=== PATIENT | male | born 1975 | race Caucasian/White ===

== ENCOUNTER → 2020-03-25 13:34 | Outpatient (REF) | payer OTHER, SELFPAY ==
--- NOTE | 2020-03-25 14:00 | CA_ITS ---
Transthoracic Echocardiogram Patient (Last, First, Middle): Thomas Georges, Gender: Male Date of : 1975 Age: 45 Procedure Date: 03/25/2020 Procedure Type: Transthoracic Echocardiogram Location: OP Height: 170.18 cm Weight: 104.33 kg BSA: 2.15 m2 Heart Rate: bpm BP: 130 / 70 mmHg Camera Systems Engineer: CUATE Referring MD: Winnie Osman DO Symptoms: I07.1 RHEUMATIC TRICUSPID INSUFFICIENCY Study Quality: Good ECG Rhythm: Sinus Conclusions: - The left ventricular systolic function is normal. The visually estimated ejection fraction is between 60-65%. - No obvious valvular pathology seen on this study. Findings Left Ventricle Normal left ventricular cavity size. There is normal left ventricular wall thickness. The left ventricular systolic function is normal. The visually estimated ejection fraction is between 60-65%. There is no evidence of regional wall motion abnormalities. Diastolic function is normal for age. Right Ventricle Normal right ventricular cavity size and systolic function. Atria Both atria are normal in size. Aortic Valve There is a normal trileaflet aortic valve. There is no aortic valve stenosis. There is no aortic valve regurgitation. Mitral Valve The mitral valve appears normal. There is trace mitral valve regurgitation. There is no mitral valve stenosis. Pulmonic Valve The pulmonic valve was not well visualized. Tricuspid Valve Normal tricuspid valve structure. There is mild tricuspid valve regurgitation. The pulmonary artery systolic pressure is normal. Great Vessels The aortic annulus, sinuses of valsalva, and asc aorta are normal in size. Venous The inferior vena cava is normal in size and collapses greater than 50% with inspiration. Pericardium/Pleural There is no evidence of pericardial effusion. Prior Study Comparison No significant change compared to prior study dated: 06/01/2016. Recommendations, Care & Conclusions No obvious valvular pathology seen on this study. Measurements 2D Linear Measurements IVSd: 0.96 0.6-0.9/0.6-1.0 cm LVIDd: 5.00 3.9-5.3/4.2-5.9 cm LVIDd Index: 2.33 2.4-3.2/2.2-3.1 cm/m2 LVIDs: 3.18 2.0-3.6 cm LVPWd: 0.95 0.7-1.1 cm Ao Root: 3.00 2.1-3.5 cm LA Diam: 3.50 2.7-3.8/3.0-4.0 cm LAIDs Index: 1.63 1.5-2.3 cm/m2 LV Mass: 213.88 67-162/88-224 g LV Mass Index: 99.48 43-95/49-115 g/m2 LVOT Diam: 2.00 3.0+(-)1.3 cm 2D Systolic Function EF 4C: 54.20 >55% EF 2C: 72.70 >55% EF BiP: 63.90 >55% Mitral Valve MV Pk E: 0.67 MV PK A: 0.51 MV Decel Time: 129.00 E/A: 1.30 E'Lateral: 13.00 E'Medial: 10.50 E/E' Med: 6.30 E/E' Lat: 5.10 PHT: 38.00 MVA PHT: 5.79 Decel Quay: 5.14 Aortic Valve AoV Pk Adair: 1.40 AoV Pk Grad: 8.00 LVOT LVOT Pk Adair: 1.17 LVOT Mn Adair: 0.77 LVOT VTI: 0.24 LVOT Pk Grad: 5.00 LVOT Mn Grad: 3.00 LVOT Diam: 2.00 LVOT Area: 3.14 Diastolic Function MV Pk E: 0.67 MV Pk A: 0.51 E/A: 1.30 E'Medial: 10.50 E/E' Med: 6.30 E' Laterial: 13.00 E/E' Lat: 5.10 Tricuspid Valve TR Pk Adair: 2.36 TR Pk Grad: 22.00 RA Press: 3.00 RVSP: 25.00 Great Vessels Aorta Ao Root-2D: 3.00 2.0-3.7 cm Ao Asc: 2.90 2.1-3.4 cm Updated in Other Vendor System with Status of Final Max You MD electronically signed on 03/28/2020 10:24:07 AM with status of Final
== END ==
LOC: HO.CARD 13:34
PROVIDERS: Visit Provider Family Medicine
DX: I07.1 Rheumatic tricuspid insufficiency (principal)
CPT/HCPCS: 93306

== ENCOUNTER 2020-12-08 07:36 | Outpatient (REF) | payer OTHER, SELFPAY ==
[2020-12-08 08:12] LABS: Hematocrit 40.8 % (42-52); Hemoglobin 13.6 g/dl (14.0-18.0); Mean Corpuscular HGB Conc 33.3 g/dl (31.0-36.0); Mean Corpuscular Volume 90.1 fL (80-98); Mean Platelet Volume 9.9 fL (9.4-12.4); Platelet Count 256 X10*3/uL (160-400); Red Blood Count 4.53 X10*6/uL (4.60-5.80); Red Cell Distribution Width 13.2 % (11.0-16.0); White Blood Count 9.1 X10*3/uL (4.8-10.8)
[2020-12-08 08:19] LABS: Estimated Average Glucose 114 mg/dL; Hemoglobin A1c % 5.6 %
[2020-12-08 08:33] LABS: Alanine Aminotransferase 20 U/L (0-40); Alkaline Phosphatase 72 U/L (39-117); Anion Gap 14 (12-20); Aspartate Amino Transferase 17 U/L (5-37); Bilirubin Direct 0.2 mg/dL (0.0-0.5); Bilirubin Total 0.5 mg/dL (0.0-1.0); Blood Urea Nitrogen 26 mg/dL (9-16); Calcium 9.1 mg/dL (8.4-10.2); Carbon Dioxide 26 mmol/L (22-29); Chloride 105 mmol/L (96-108); Cholesterol 154 mg/dL; Estimated Glomerular Filt Rate > 60; Glucose Random 98 mg/dL (60-115); HDL Cholesterol 44 mg/dL; LDL Cholesterol Calculated 98 mg/dl; Potassium 3.6 mmol/L (3.3-5.1); Sodium 141 mmol/L (135-145); Total Protein 7.2 g/dL (6.5-8.0); Triglycerides 63 mg/dL
[2020-12-08 08:53] LABS: HBS Num1 0.14 mIU/mL (0-7.99); HIV AB/AG Nonreactive (Nonreactive); HIV Num 1 0.07 S/CO (0.00-0.99); ~Hepatitis B Surface Antibody NONREACTIVE (Nonreactive)
[2020-12-08 08:59] LABS: Free T4 (Free Thyroxine) 1.07 ng/dL (0.71-1.85); Thyroid Stimulating Hormone 0.62 uIU/mL (0.32-4.0); Vitamin D 25-OH Total 49.4 ng/mL (>30)
[2020-12-08 09:12] LABS: ~HepC Num1 0.26 S/CO (0.00-0.79); ~Hepatitis C Antibody Nonreactive (Nonreactive)
[2020-12-08 09:20] LABS: Creatinine Urine 190.91 mg/dL; Microalbum/Creatinine Ratio Ur 31.4 ug/mg cr
[2020-12-08 09:26] LABS: HBsAGNum1 0.21 S/CO (0.00-0.99); Hepatitis B Surface Antigen Negative (Negative)
[2020-12-08 11:50] LABS: CT PCR NOT DETECTED (Not Detect.); NG PCR NOT DETECTED (Not Detect.)
[2020-12-09 04:47] LABS: Syphilis Screen Nonreactive (Nonreactive)
== END 2020-12-08 07:37 | disposition home or self-care (01) ==
LOC: HO.LAB 07:36
PROVIDERS: PCP Family Medicine; Visit Provider Family Medicine
DX: Z01.84 Encounter for antibody response examination (principal); Z11.59 Encounter for screening for other viral diseases; Z11.3 Encounter for screening for infections with a predominantly sexual mode of transmission; Z11.4 Encounter for screening for human immunodeficiency virus [HIV]; I10 Essential (primary) hypertension
CPT/HCPCS: 80048; 80061; 80076; 82043; 82306; 83036; 84439; 84443; 85027; 86706; 86780; 86803; 87340; 87389; 87491; 87591

== ENCOUNTER 2024-02-28 10:00 | Outpatient (REF) | payer OTHER, SELFPAY ==
[2024-02-28 11:16] LABS: Hematocrit 43.3 % (42.0-52.0); Hemoglobin 14.4 g/dl (14.0-18.0); Mean Corpuscular HGB Conc 33.3 g/dl (31.0-36.0); Mean Corpuscular Volume 90.2 fL (80.0-98.0); Mean Platelet Volume 10.3 fL (9.4-12.4); Platelet Count 255 X10*3/uL (160-400); Red Cell Distribution Width 12.8 % (11.0-16.0); White Blood Count 6.9 X10*3/uL (4.8-10.8)
[2024-02-28 11:29] LABS: Estimated Average Glucose 114 mg/dL; Hemoglobin A1C 138.2378 umol/L; Hemoglobin A1c % 5.6 % (<6.0); Total Hemoglobin (HGBA1C) 3651.0986 umol/L
[2024-02-28 12:23] LABS: Alanine Aminotransferase 29 U/L (0-40); Albumin Level 3.8 g/dL (3.5-5.0); Alkaline Phosphatase 56 U/L (39-117); Anion Gap 12 (12-20); Aspartate Amino Transferase 31 U/L (5-37); Bilirubin Direct 0.2 mg/dL (0.0-0.5); Bilirubin Total 0.9 mg/dL (0.0-1.0); Blood Urea Nitrogen 23 mg/dL (9-16); Calcium 8.9 mg/dL (8.4-10.2); Carbon Dioxide 26 mmol/L (22-29); Chloride 106 mmol/L (96-108); Cholesterol 147 mg/dL (<200); Estimated Glomerular Filt Rate > 60; Glucose Random 98 mg/dL (60-115); HDL Cholesterol 47 mg/dL (>40); LDL Cholesterol Calculated 90 mg/dL (<100); Potassium 3.8 mmol/L (3.3-5.1); Sodium 140 mmol/L (135-145); Total Protein 7.2 g/dL (6.5-8.0); Triglycerides 54 mg/dL (<150)
[2024-02-28 12:41] LABS: HBS Num1 635.89 mIU/mL (0-7.99); HBc Num1 0.24 S/CO (0.00-0.79); HBsAGNum1 0.48 S/CO (0.00-0.99); HIV AB/AG Nonreactive (Nonreactive); HIV Num 1 0.05 S/CO (0.00-0.99); Hepatitis B Core Antibody Nonreactive (Nonreactive); Hepatitis B Surface Antigen Negative (Negative); ~HepC Num1 0.33 S/CO (0.00-0.79); ~Hepatitis B Surface Antibody REACTIVE (Nonreactive); ~Hepatitis C Antibody Nonreactive (Nonreactive)
[2024-02-28 12:47] LABS: Hepatitis A Antibody IgG REACTIVE (Nonreactive)
[2024-02-28 12:52] LABS: Free T4 (Free Thyroxine) 1.05 ng/dL (0.71-1.85); Thyroid Stimulating Hormone 0.58 uIU/mL (0.32-4.0)
[2024-03-01 23:14] LABS: RPR Rapid Plasma Reagin NON-REACTIVE (NON-REACTIVE)
== END 2024-02-28 10:01 | disposition home or self-care (01) ==
LOC: HO.HHCL 10:00
PROVIDERS: Visit Provider Family Medicine
DX: Z12.11 Encounter for screening for malignant neoplasm of colon (principal); I10 Essential (primary) hypertension; Z13.1 Encounter for screening for diabetes mellitus
CPT/HCPCS: 36415; 80048; 80061; 80076; 82306; 83036; 84439; 84443; 85027; 86592; 86704; 86706; 86708; 86803; 87340; 87389

== ENCOUNTER → 2024-03-22 12:38 | Outpatient (REF) | payer OTHER, SELFPAY ==
--- NOTE | 2024-03-22 12:42 | CA_ITS ---
Transthoracic Echocardiogram Patient (Last, First, Middle): Thomas Georges, Gender: Male Date of : 1975 Age: 49 Procedure Date: 03/22/2024 Procedure Type: Transthoracic Echocardiogram Location: OP Height: 170.18 cm Weight: 111.13 kg BSA: 2.20 m2 Heart Rate: bpm BP: 130 / 82 mmHg Senior Foreman: Referring MD: Winnie Osman DO Symptoms: TRICUSPID VALVE INSUFFICIENCY 107.1 BIFASICULAR BLOCK, I45,2 Study Quality: Good ECG Rhythm: Sinus Conclusions: - Normal left ventricular size and systolic function. There is mildly increased left ventricular wall thickness. The visually estimated ejection fraction is between 65-70%. - Diastolic function is normal for age. - Mildly increased right ventricular cavity size. Findings Left Ventricle Normal left ventricular size and systolic function. There is mildly increased left ventricular wall thickness. The visually estimated ejection fraction is between 65-70%. There is no evidence of regional wall motion abnormalities. Diastolic function is normal for age. Right Ventricle Mildly increased right ventricular cavity size. There is normal right ventricular systolic function. Atria The left atrium is normal in size. Aortic Valve Normal aortic valve structure and function. There is no aortic valve stenosis. There is no aortic valve regurgitation. Mitral Valve Normal mitral valve structure and function. There is no mitral valve regurgitation. There is no mitral valve stenosis. Pulmonic Valve The pulmonic valve is likely normal. Tricuspid Valve Normal tricuspid valve structure. There is trace tricuspid valve regurgitation. Normal right atrial pressure. There is no evidence of pulmonary hypertension. Great Vessels All visible segments of the aorta are normal in size. The visualized portions of the pulmonary artery and branches are normal. Venous The inferior vena cava is normal in size and collapses greater than 50% with inspiration. Pericardium/Pleural There is no evidence of pericardial effusion. Prior Study Comparison Changes noted compared to prior study dated: 03/25/2024. RV mildly dilated. Measurements 2D Linear Measurements IVSd: 1.12 0.6-0.9/0.6-1.0 cm LVIDd: 4.78 3.9-5.3/4.2-5.9 cm LVIDd Index: 2.17 2.4-3.2/2.2-3.1 cm/m2 LVIDs: 3.14 2.0-3.6 cm LVPWd: 1.05 0.7-1.1 cm Ao Root: 2.90 2.1-3.5 cm LA Diam: 4.30 2.7-3.8/3.0-4.0 cm LAIDs Index: 1.95 1.5-2.3 cm/m2 LV Mass: 235.55 67-162/88-224 g LV Mass Index: 107.07 43-95/49-115 g/m2 LVOT Diam: 2.10 3.0+(-)1.3 cm Mitral Valve MV Pk E: 0.83 MV PK A: 0.58 MV Decel Time: 149.00 E/A: 1.40 E'Lateral: 14.30 E'Medial: 8.59 E/E' Med: 9.60 E/E' Lat: 5.80 PHT: 44.00 MVA PHT: 5.00 Decel Rice: 5.55 Aortic Valve AoV Pk Adair: 1.41 AoV Mn Adair: 0.93 AoV VTI: 0.32 AoV Pk Grad: 8.00 Aov Mn Grad: 4.00 CADEN Cont.VTI: 2.29 LVOT LVOT Pk Adair: 0.99 LVOT Mn Adair: 0.62 LVOT VTI: 0.21 LVOT Pk Grad: 4.00 LVOT Mn Grad: 2.00 LVOT Diam: 2.10 LVOT Area: 3.46 Diastolic Function MV Pk E: 0.83 MV Pk A: 0.58 E/A: 1.40 E'Medial: 8.59 E/E' Med: 9.60 E' Laterial: 14.30 E/E' Lat: 5.80 Right Ventricle TAPSE (mm): 33.00 TVS' Adair: 14.00 Tricuspid Valve TR Pk Adair: 2.61 TR Pk Grad: 27.00 RA Press: 3.00 RVSP: 30.00 Great Vessels Aorta Ao Root-2D: 2.90 2.0-3.7 cm Ao Asc: 3.20 2.1-3.4 cm Pulmonary Valve PV Pk Adair: 1.06 Peak PV Grad: 4.00 Updated in Other Vendor System with Status of Final Jamin Oliver MD electronically signed on 03/24/2024 7:26:44 PM with status of Final
== END ==
LOC: HO.CARD 12:38
PROVIDERS: PCP Family Medicine; Visit Provider Family Medicine
DX: I07.1 Rheumatic tricuspid insufficiency (principal)
CPT/HCPCS: 93306

== ENCOUNTER → 2024-03-22 12:42 | Outpatient (BNV) | payer OTHER, SELFPAY | PROVIDERS: PCP Family Medicine; Visit Provider Internal Medicine Cardiovascular Disease | DX: I36.1 Nonrheumatic tricuspid (valve) insufficiency (principal) | CPT/HCPCS: 93306 ==

== ENCOUNTER 2024-06-05 14:17 | Outpatient (AMB) | payer OTHER, SELFPAY ==
--- NOTE | 2024-06-05 14:20 | A.OFFVIS_ITS ---
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 It seems that he has a history of bifascicular block. According to him, he has seen Dr. Man many years ago but nothing recently. He does not have any cardiovascular symptoms like angina or shortness of breath or palpitations or syncopal episodes or in fact anything cardiac sounding. He is fully active with absolutely no limitations according to him. No documented obstructive sleep apnea. On meds for hypertension. [facility] Medical History (Updated 06/05/24 @ 14:52 by Max You MD) Essential hypertension Family History (Updated 06/05/24 @ 14:32 by Jaida Rasheed) Father Heart problem Mother High blood pressure Social History (Updated 06/05/24 @ 14:32 by Jaida Rasheed) Alcohol intake: never Patient Tobacco Use Status: Never used Tobacco Review of Systems Const Denies weakness ENT Denies dizziness Card Denies chest pain, Denies chest pain with activity, Denies syncope, Denies rapid heart rate, Denies pedal edema, Denies edema, Denies leg edema, Denies lightheadedness, Denies palpitations, Denies dyspnea, Denies dyspnea on exertion and Denies orthopnea Resp Denies cough, Denies dyspnea and Denies dyspnea on exertion GI Denies hematochezia and Denies change in stool character Musc Denies abnormal gait, Denies muscle cramps, Denies muscle weakness, Denies numbness, Denies radiating pain into limb and Denies tingling Neuro Denies abnormal gait, Denies dizziness, Denies syncope, Denies numbness, Denies tingling and Denies weakness Endo Denies palpitations Physical Exam Vital Signs: Last Vital Signs Pulse 77 06/05/24 14:22 BP 138/80 06/05/24 14:22 BMI result Body Mass Index 36.9 Const General: comfortable and no acute distress Orientation/consciousness: patient oriented x3 HEENT Other: Unremarkable Head: Yes normal to inspection Neck Neck: Yes normal visual inspection Chest Chest palpation & inspection: normal inspection of the chest Resp Auscultation: clear to auscultation bilaterally Cardio Palpation: normal PMI Heart sounds: S1 normal heart sound present, S2 normal heart sound present, no gallops, no murmurs and no rubs GI Palpation (GI): Soft to palpation Back/Spine/Pelvis Other: unremarkable Skin General skin exam: no rashes or lesions noted Neuro General: patient oriented x3 Extrem General: Yes normal to inspection Psych Mental Status: mental status grossly normal Office Procedures EKG Details: EKG with underlying sinus rhythm at 77/Min; sinus arrhythmias; right bundle- branch block and left anterior fascicular block-bifascicular block. [id number], Complete Assessment & Plan Assessment & Plan (1) Bifascicular block: Code(s): I45.2 - Bifascicular block Category: Medical (2) Essential hypertension: Code(s): I10 - Essential (primary) hypertension Category: Medical Plan Bifascicular block is present an EKG as far back as 2016. Hence seems to be a chronic finding. In the recent echocardiogram, LVEF is 65-70%. Mildly increased right ventricular size but otherwise unremarkable. Last stress test from 20 17-11.1 METS on Kenn protocol with no angina or EKG evidence of ischemia. Echocardiographic component unremarkable. Overall, bifascicular block, hypertension, need to exclude obstructive sleep apnea. Obtain home sleep study. Blood pressure seems reasonable on the current regimen. With regard to bifascicular block, possibility of progressive heart block in the future. We will need to monitor on EKGs periodically. Follow-up in 1 year. Orders: Orders RT home sleep study Today G47.33 - Obstructive sleep apnea (adult) (pediatric) Coding Level of Care Code New Pt Level 4 (27681) Diagnoses Bifascicular block I45.2 Essential hypertension I10 CPT Codes EKG - CPT: 23619-[id number], Complete ([id number])
[2024-06-05 14:22] VITALS: BP 138/80; PULSE 77; BMI 36.9
== END 2024-06-05 14:55 | disposition home or self-care (01) ==
PROVIDERS: PCP Family Medicine; Visit Provider Internal Medicine
DX: I45.2 Bifascicular block (principal); I10 Essential (primary) hypertension
CPT/HCPCS: 93010; 99204

== ENCOUNTER → 2024-06-05 14:17 | Outpatient (BNVA) | payer OTHER, SELFPAY | PROVIDERS: PCP Family Medicine; Visit Provider Internal Medicine | DX: I45.2 Bifascicular block (principal); I10 Essential (primary) hypertension | CPT/HCPCS: 93005 ==

== ENCOUNTER → 2024-07-31 13:52 | Outpatient (REF) | payer OTHER, SELFPAY | LOC: HO.SL 13:52 | PROVIDERS: PCP Family Medicine; Visit Provider Internal Medicine | DX: G47.33 Obstructive sleep apnea (adult) (pediatric) (principal) | CPT/HCPCS: 95806 ==

== ENCOUNTER 2024-10-09 13:20 | Outpatient (AMB) | payer OTHER, SELFPAY ==
[2024-10-09 13:31] VITALS: BP 130/74; PULSE 65; O2SAT 97; BMI 36.6
--- NOTE | 2024-10-09 13:31 | MHC.OFFVIS ---
Vital Signs 10/09/24 13:31 Height 5 ft 7 in Weight 233 lb 11.04 oz BMI 36.6 BP 130/74 Blood Pressure Location Lt brachial Position Sitting Pulse 65 Pulse Source Pulse Oximeter Pulse Oximetry (%) 97 Oxygen Delivery Method Room Air Intake Visit Reasons: alonso Intake Note: pt is here as a new patient for follow up of Sleep study, snores, he does sleep well, works 2 jobs Director Of Cardiac Cath Lab Required: Yes Director Of Cardiac Cath Lab Services: Director Of Cardiac Cath Lab Present Director Of Cardiac Cath Lab Name: Dorothea CHRISTIAN) Allergies No Known Allergies Allergy (Unverified 10/09/24 13:48) Medication List - Last Reconciled 10/09/24 by Andrew Shepherd MD cholecalciferol (vitamin D3) 50 mcg PO DAILY docusate sodium (Colace) 100 mg PO BID hydrochlorothiazide 25 mg PO DAILY losartan 50 mg PO DAILY polyethylene glycol 3350 17 grams PO DAILY PRN sennosides (senna) 17.2 mg PO DAILY PRN Do you need a note to return to daycare/school/sports/work: No HPI HPI alonso: Details: 49 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 THE SLEEP STUDY WAS ORDERED BY DR. STEIN WHO WAS CHECKING HIM FOR CARDIOLOGY. HE WAS FOUND TO HAVE BIFASCICULAR BLOCK. ACCORDING TO HIS HE HAD HISTORY OF SNORING AT NIGHT. THIS GENTLEMAN HIMSELF CLAIMS THAT HE SLEEPS GOOD AT LEAST 6-7 HOURS EVERY NIGHT WITHOUT ANY ISSUE. HE DOES NOT HAVE DAYTIME SLEEPINESS. HE DOES FEEL TIRED BECAUSE HE IS DOING 2 JOBS EVERY DAY. HE DOES REMAIN MODERATELY OBESE. HE IS NONSMOKER. HE HAS NO HISTORY OF COUGH WHEEZING OR SHORTNESS OF BREATH ON EXERTION. HIS HOME-BASED SLEEP STUDY WAS ABNORMAL INDICATING MILD OBSTRUCTIVE SLEEP APNEA WITH BORDERLINE NOCTURNAL HYPOXEMIA. SO HE HAS BEEN REFERRED FOR PULMONARY/SLEEP EVALUATION AND MANAGEMENT. [facility] Medical History Essential hypertension Family History Father Heart problem Mother High blood pressure Social History Alcohol intake: never Patient Tobacco Use Status: Never used Tobacco Review of Systems Const All systems reviewed & are unremarkable except as noted in HPI and below Reports snoring (MODERATELY LOUD SNORING AT NIGHT) Eyes Reports no additional complaints ENT Reports nasal congestion (OFF AND ON) Card Denies chest pain at rest, Denies rapid heart rate, Denies irregular heart rhythm, Denies leg edema and Denies dyspnea on exertion Resp Denies dyspnea on exertion, Reports snoring (MODERATELY LOUD SNORING AT NIGHT) and Denies wheezing GI Reports no additional complaints Reports no additional complaints Musc Reports no additional complaints Skin/Breast Reports system reviewed and no additional complaints, except as documented Neuro Reports no additional complaints Psych Reports no additional complaints Endo Reports no additional complaints Oleg/Lymph Reports no additional complaints Aller/Immun Denies wheezing Physical Exam Vital Signs: Last Vital Signs Pulse 65 10/09/24 13:31 BP 130/74 10/09/24 13:31 Pulse Ox 97 10/09/24 13:31 Oxygen Delivery Method Room Air 10/09/24 13:31 BMI result Body Mass Index 36.6 Const General: healthy appearing (EXCEPT FOR BEING OVERWEIGHT), comfortable, no acute distress, alert and awake Orientation/consciousness: patient oriented x3 HEENT Head: Yes normal to inspection General nose exam: No nasal polyps present and No nasal discharge present Face and sinus: Yes sinuses nontender Mouth: oropharynx normal Throat: Yes posterior oropharynx normal Eyes General: appearance normal, both eyes and all related structures Neck Neck: Yes normal visual inspection, Yes no lymphadenopathy, Yes trachea midline and Yes no JVD Thyroid: Thyroid normal Chest Chest palpation & inspection: normal inspection of the chest, normal palpation of entire chest wall and no tenderness Resp Effort & Inspection: normal respiratory effort Auscultation: clear to auscultation bilaterally, no crackles, no rhonchi and no wheezes Cardio Palpation: normal PMI Rate: regular rate Rhythm: regular rhythm Heart sounds: no gallops and no murmurs Peripheral pulses: Peripheral pulses 2+ throughout GI Palpation (GI): Soft to palpation, nontender, No hepatosplenomegaly present and no masses Auscultation: normal bowel sounds Back/Spine/Pelvis Thoracic/Lumbar Spine: thoracic and lumbar spine normal to inspection Skin General skin exam: no rashes or lesions noted Neuro General: patient oriented x3 and no focal motor deficits Cranial nerves: Yes CN's II-XII intact bilaterally Extrem General: Yes normal to inspection, Yes no clubbing, cyanosis or edema and Yes no calf tenderness Psych Speech and movement: Normal speech and movement present Results Reviewed Results Reviewed: HOME-BASED SLEEP STUDY ON 07/31/2024 TOTAL SLEEP TIME AHI 14, IN SUPINE POSITION AHI 18 AND IN RIGHT LATERAL POSITION AHI 4.2 SNORING FOR 7% OF THE SLEEP TIME. THERE IS ALSO BORDERLINE NOCTURNAL HYPOXEMIA WITH LOWEST O2 SAT. 77% AND O2 SAT BELOW 88% FOR 6 MINUTES Assessment & Plan Assessment & Plan (1) Essential hypertension: Comment: PATIENT BEING FOLLOWED BY CARDIOLOGY AND BLOOD PRESSURE IS CONTROLLED WITH MED. Code(s): I10 - Essential (primary) hypertension Category: Medical Plan: CONTINUE TO FOLLOW-UP WITH CARDIOLOGY (2) Bifascicular block: Comment: CARDIOLOGY EVALUATION SHOWS THAT HE HAS BIFASCICULAR BLOCK. Code(s): I45.2 - Bifascicular block Category: Medical Plan: BECAUSE OF THIS ASSOCIATED CONDUCTION PROBLEM IT WILL BE BETTER TO USE CPAP EVEN FOR A MILD ALONSO. (3) ALONSO (obstructive sleep apnea): Comment: PATIENT DOES HAVE HISTORY OF SNORING ESPECIALLY IN SUPINE POSITION, AND SLEEP STUDY IS CONSISTENT WITH MILD TO MODERATE DEGREE OF OBSTRUCTIVE SLEEP APNEA ESPECIALLY IN SUPINE POSITION. THERE IS A BORDERLINE NOCTURNAL HYPOXEMIA. Code(s): G47.33 - Obstructive sleep apnea (adult) (pediatric) Category: Medical Plan: I DISCUSSED THE OPTIONS FOR TREATMENT. EXPLAINED THAT IN VIEW OF HIS UNDERLYING CARDIAC HISTORY AND HYPERTENSION IT MAY BE BETTER TO START ON CPAP THERAPY. AT THE SAME TIME HE SHOULD TRY TO LOSE WEIGHT, AND SLEEP IN LATERAL POSITION. IF HE HAS LOST ABOUT 20-25 LB OF WEIGHT THEN WE CAN REPEAT THE SLEEP STUDY TO SEE IF HE STILL NEEDS THE CPAP. PATIENT UNDERSTOOD VERY WELL AND HE IS WILLING TO START CPAP THERAPY. BUT HE IS GOING TO DO HIS BEST TO LOSE WEIGHT SO THAT EVENTUALLY HE COULD COME OFF THE CPAP. I WILL SEND ORDERED FOR CPAP THERAPY WITH AUTO PAP MODE PRESSURE SETTING 6-20 CM, USING FULLFACE MASK. Coding Level of Care Code New Pt Level 3 (39308) Diagnoses Essential hypertension I10 Bifascicular block I45.2 ALONSO (obstructive sleep apnea) G47.33
--- OUTSIDE RECORDS SUMMARY | 2024-10-09 13:38 | XMS_ITS | Encounter Summary ---
Author Organization [employer] Address [address] [place] [address] Care Team Providers Care Service Station Operator Name Role Phone Winnie Osman DO Primary Care Provider [phone] Encounter Details Date Type Department Care Team (Late st Contact Info) Description 05/18/2022 Orders Only [facility] [address] [place] [address] Clarissa Shelley LPN Social History Tobacco Use Types Packs/Day Years Used Date Smoking Tobacco: Never Assessed Sex and Gender Information Value Date Recorded Sex Assigned at Male 03/07/2022 10:21 AM EDT Legal Sex Male 10:21 AM EDT Gender Identity Male 03/07/2022 10:21 AM EDT Sexual Orientation Straight 03/07/2022 10 :21 AM EDT documented as of this encounter Plan of Treatment Not on file documented as of this encounter Visit Diagnoses Not on filedocumented in this encounter Care Teams Service Station Operator Relationship Specialty Start Date End Date Winnie Osman DO [address] [place] [address] PCP - General Family Medicine 11/22/13 documented as of this encounter
== END 2024-10-09 13:50 | disposition home or self-care (01) ==
LOC: HO.HPS 13:26
PROVIDERS: PCP Family Medicine; Visit Provider Internal Medicine
DX: I10 Essential (primary) hypertension (principal); I45.2 Bifascicular block; G47.33 Obstructive sleep apnea (adult) (pediatric)
CPT/HCPCS: 99203

== ENCOUNTER → 2024-10-09 13:20 | Outpatient (BNVA) | payer OTHER, SELFPAY | PROVIDERS: PCP Family Medicine; Visit Provider Internal Medicine ==

== ENCOUNTER 2024-12-11 12:41 | Outpatient (AMB) | payer OTHER, SELFPAY ==
--- OUTSIDE RECORDS SUMMARY | 2024-12-11 13:13 | XMS_ITS | Encounter Summary ---
Author Organization [employer] Address [address] [place] [address] Care Team Providers Care Staff Cytotechnologist Name Role Phone Winnie Osman DO Primary Care Provider [phone] Encounter Details Date Type Department Care Team (Late st Contact Info) Description 05/18/2022 Orders Only [facility] [address] [place] [address] Clarissa Shelley LPN Social History Tobacco Use [...] on filedocumented in this encounter Care Teams Staff Cytotechnologist Relationship Specialty Start Date End Date Winnie Osman DO [address] [place] [address] PCP - General Family Medicine 11/22/13 documented as of this encounter
--- NOTE | 2024-12-11 13:15 | A.OFFVIS_ITS ---
Vital Signs 12/11/24 13:16 Height 5 ft 7 in Weight 235 lb 14.314 oz BMI 36.9 BP 118/70 Blood Pressure Location Lt brachial Position Sitting Pulse 68 Pulse Source Pulse Oximeter Pulse Oximetry (%) 97 Oxygen Delivery Method Room Air Intake Visit Reasons: Obstructive sleep apnea Intake Note: pt is here for follow up and states he is still snoring, but was away on vacation and mask broke, just received new one today Historical Interpreter Required: No Allergies No Known Allergies Allergy (Unverified 12/11/24 13:20) PFSH Medical History Essential hypertension Family History Father Heart problem Mother High blood pressure Social History Alcohol intake: never Patient Tobacco Use Status: Never used Tobacco Physical Exam Vital Signs: Last Vital Signs Pulse 68 12/11/24 13:16 BP 118/70 12/11/24 13:16 Pulse Ox 97 12/11/24 13:16 Oxygen Delivery Method Room Air 12/11/24 13:16 BMI result Body Mass Index 36.9 Coding
[2024-12-11 13:16] VITALS: BP 118/70; PULSE 68; O2SAT 97; BMI 36.9
--- NOTE | 2024-12-11 13:33 | MHC.OFFVIS ---
Vital Signs 12/11/24 13:16 Height 5 ft 7 in Weight 235 lb 14.314 oz BMI 36.9 BP 118/70 Blood Pressure Location Lt brachial Position Sitting Pulse 68 Pulse Source Pulse Oximeter Pulse Oximetry (%) 97 Oxygen Delivery Method Room Air Intake Visit Reasons: Obstructive sleep apnea Allergies No Known Allergies Allergy (Unverified 12/11/24 13:33) Medication List - Last Reconciled 12/11/24 by Andrew Shepherd MD cholecalciferol (vitamin D3) 50 mcg PO DAILY docusate sodium (Colace) 100 mg PO DAILY hydrochlorothiazide 25 mg PO DAILY losartan 50 mg PO DAILY polyethylene glycol 3350 17 grams PO DAILY PRN sennosides (senna) 17.2 mg PO DAILY PRN Do you need a note to return to daycare/school/sports/work: No HPI HPI Obstructive sleep apnea: Details: THIS 49 YEARS OLD GENTLEMAN GROSSLY OBESE WITH DIAGNOSIS OF OBSTRUCTIVE SLEEP APNEA. WE ORDERED THE CPAP MACHINE 2 MONTHS AGO, HE GOT IT A FEW WEEKS LATER AND THEN WENT TO [place]. HE SAY IS THAT THE MASK GOT BROKEN IN [place] AND HE HAS NOT BEEN ABLE TO USE THE MACHINE. HE JUST RECEIVED THE REPLACEMENT MASK AND BUT HAS HAD NO CHANCE TO USE IT YET. SO WE DO NOT HAVE ANY COMPLIANCE DATA. HE CONTINUES TO HAVE SYMPTOMS OF EXCESSIVE SNORING AT NIGHT POOR SLEEP AND EXCESSIVE DAYTIME SLEEPINESS. WEIGHT REMAINS UNCHANGED. [facility] Medical History (Updated 12/11/24 @ 13:38 by Andrew Shepherd MD) Obesity (BMI 30-39.9) Essential hypertension Family History Father Heart problem Mother High blood pressure Social History Alcohol intake: never Patient Tobacco Use Status: Never used Tobacco Review of Systems Const All systems reviewed & are unremarkable except as noted in HPI and below Reports snoring (MODERATELY LOUD SNORING AT NIGHT) Eyes Reports no additional complaints ENT Reports nasal congestion (OFF AND ON) Card Denies chest pain at rest, Denies rapid heart rate, Denies irregular heart rhythm, Denies leg edema and Denies dyspnea on exertion Resp Denies dyspnea on exertion, Reports snoring (MODERATELY LOUD SNORING AT NIGHT) and Denies wheezing GI Reports no additional complaints Reports no additional complaints Musc Reports no additional complaints Skin/Breast Reports system reviewed and no additional complaints, except as documented Neuro Reports no additional complaints Psych Reports no additional complaints Endo Reports no additional complaints Oleg/Lymph Reports no additional complaints Aller/Immun Denies wheezing Physical Exam Vital Signs: Last Vital Signs Pulse 68 12/11/24 13:16 BP 118/70 12/11/24 13:16 Pulse Ox 97 12/11/24 13:16 Oxygen Delivery Method Room Air 12/11/24 13:16 BMI result Body Mass Index 36.9 Const General: healthy appearing (EXCEPT FOR BEING OVERWEIGHT), comfortable, no acute distress, alert and awake Orientation/consciousness: patient oriented x3 HEENT Head: Yes normal to inspection General nose exam: No nasal polyps present and No nasal discharge present Face and sinus: Yes sinuses nontender Mouth: oropharynx normal Throat: Yes posterior oropharynx normal Eyes General: appearance normal, both eyes and all related structures Neck Neck: Yes normal visual inspection, Yes no lymphadenopathy, Yes trachea midline and Yes no JVD Thyroid: Thyroid normal Chest Chest palpation & inspection: normal inspection of the chest, normal palpation of entire chest wall and no tenderness Resp Effort & Inspection: normal respiratory effort Auscultation: clear to auscultation bilaterally, no crackles, no rhonchi and no wheezes Cardio Palpation: normal PMI Rate: regular rate Rhythm: regular rhythm Heart sounds: no gallops and no murmurs Peripheral pulses: Peripheral pulses 2+ throughout GI Palpation (GI): Soft to palpation, nontender, No hepatosplenomegaly present and no masses Auscultation: normal bowel sounds Back/Spine/Pelvis Thoracic/Lumbar Spine: thoracic and lumbar spine normal to inspection Skin General skin exam: no rashes or lesions noted Neuro General: patient oriented x3 and no focal motor deficits Cranial nerves: Yes CN's II-XII intact bilaterally Extrem General: Yes normal to inspection, Yes no clubbing, cyanosis or edema and Yes no calf tenderness Psych Speech and movement: Normal speech and movement present Results Reviewed Results Reviewed: NO COMPLIANCE AVAILABLE Assessment & Plan Assessment & Plan (1) ALONSO (obstructive sleep apnea): Comment: PATIENT DOES HAVE HISTORY OF SNORING ESPECIALLY IN SUPINE POSITION, AND SLEEP STUDY IS CONSISTENT WITH MILD TO MODERATE DEGREE OF OBSTRUCTIVE SLEEP APNEA ESPECIALLY IN SUPINE POSITION. THERE IS A BORDERLINE NOCTURNAL HYPOXEMIA. Code(s): G47.33 - Obstructive sleep apnea (adult) (pediatric) Category: Medical Plan: ADVISE THAT HE NEEDS TO START USING CPAP REGULARLY. WILL RECHECK IN A COUPLE MONTHS AND GO OVER HIS COMPLIANCE. (2) Obesity (BMI 30-39.9): Comment: PATIENT REMAINS MODERATELY OBESE. HE IS NOT IN ANY ACTIVE WEIGHT MANAGEMENT PROGRAM. Code(s): E66.9 - Obesity, unspecified Category: Medical Plan: DISCUSSED WITH HIM AND HIS THAT HE HAS TO CUT DOWN ON THE INTAKE OF CALORIES AND ESPECIALLY CARBOHYDRATES. HE SHOULD BE PHYSICALLY ACTIVE AND SHOULD WALK UP TO 2 MILES EVERY DAY. HE NEEDS TO LOSE SIGNIFICANT AMOUNT OF WEIGHT. Coding Level of Care Code Est Pt Level 3 (41471) Diagnoses ALONSO (obstructive sleep apnea) G47.33 Obesity (BMI 30-39.9) E66.9
== END 2024-12-11 13:33 | disposition home or self-care (01) ==
LOC: HO.HPS 12:42
PROVIDERS: PCP Family Medicine; Visit Provider Internal Medicine
DX: G47.33 Obstructive sleep apnea (adult) (pediatric) (principal); E66.9 Obesity, unspecified
CPT/HCPCS: 99213

== ENCOUNTER 2025-02-11 13:30 | Outpatient (AMB) | payer OTHER, SELFPAY ==
[2025-02-11 13:44] VITALS: BP 130/80; BMI 36.9
--- NOTE | 2025-02-11 13:44 | A.OFFVIS_ITS ---
Vital Signs 02/11/25 13:44 Height 5 ft 7 in Weight 235 lb 14.314 oz BMI 36.9 BP 130/80 Blood Pressure Location Lt brachial Position Sitting Intake Visit Reasons: Obstructive sleep apnea Intake Note: pt is here for follow up and states he is feeling good using cpap. [facility]. Senior Market Research Analyst Required: Yes Senior Market Research Analyst Services: Senior Market Research Analyst Present Senior Market Research Analyst Name: [id number] Supervisor Fabrication Department: Supervisor Fabrication Department offered & declined Allergies No Known Allergies Allergy (Unverified 02/11/25 14:00) Medication List - Last Reconciled 02/11/25 by Andrew Shepherd MD cholecalciferol (vitamin D3) 50 mcg PO DAILY docusate sodium (Colace) 100 mg PO DAILY hydrochlorothiazide 25 mg PO DAILY losartan 50 mg PO DAILY polyethylene glycol 3350 17 grams PO DAILY PRN sennosides (senna) 17.2 mg PO DAILY PRN Do you need a note to return to daycare/school/sports/work: No HPI HPI Obstructive sleep apnea: Details: This 50 years old gentleman who with gross obesity and obstructive sleep apnea is now being treated with CPAP and he loves it. He is very regular in using the CPAP every night. He ends up using about 5-1/2 hours and then he has to take off the mask and go to work. Denies any daytime sleepiness. He has no issues with the fullface mask and also with the machine. Has not been able to lose much weight but he is definitely more energetic. [facility] Medical History Obesity (BMI 30-39.9) Essential hypertension Family History Father Heart problem Mother High blood pressure Social History Alcohol intake: never Patient Tobacco Use Status: Never used Tobacco Review of Systems Const All systems reviewed & are unremarkable except as noted in HPI and below Reports snoring (MODERATELY LOUD SNORING AT NIGHT) Eyes Reports no additional complaints ENT Reports nasal congestion (OFF AND ON) Card Denies chest pain at rest, Denies rapid heart rate, Denies irregular heart rhythm, Denies leg edema and Denies dyspnea on exertion Resp Denies dyspnea on exertion, Reports snoring (MODERATELY LOUD SNORING AT NIGHT) and Denies wheezing GI Reports no additional complaints Reports no additional complaints Musc Reports no additional complaints Skin/Breast Reports system reviewed and no additional complaints, except as documented Neuro Reports no additional complaints Psych Reports no additional complaints Endo Reports no additional complaints Oleg/Lymph Reports no additional complaints Aller/Immun Denies wheezing Physical Exam Vital Signs: Last Vital Signs BP 130/80 02/11/25 13:44 BMI result Body Mass Index 36.9 Const General: healthy appearing (EXCEPT FOR BEING OVERWEIGHT), comfortable, no acute distress, alert and awake Orientation/consciousness: patient oriented x3 HEENT Head: Yes normal to inspection General nose exam: No nasal polyps present and No nasal discharge present Face and sinus: Yes sinuses nontender Mouth: oropharynx normal Throat: Yes posterior oropharynx normal Eyes General: appearance normal, both eyes and all related structures Neck Neck: Yes normal visual inspection, Yes no lymphadenopathy, Yes trachea midline and Yes no JVD Thyroid: Thyroid normal Chest Chest palpation & inspection: normal inspection of the chest, normal palpation of entire chest wall and no tenderness Resp Effort & Inspection: normal respiratory effort Auscultation: clear to auscultation bilaterally, no crackles, no rhonchi and no wheezes Cardio Palpation: normal PMI Rate: regular rate Rhythm: regular rhythm Heart sounds: no gallops and no murmurs Peripheral pulses: Peripheral pulses 2+ throughout GI Palpation (GI): Soft to palpation, nontender, No hepatosplenomegaly present and no masses Auscultation: normal bowel sounds Back/Spine/Pelvis Thoracic/Lumbar Spine: thoracic and lumbar spine normal to inspection Skin General skin exam: no rashes or lesions noted Neuro General: patient oriented x3 and no focal motor deficits Cranial nerves: Yes CN's II-XII intact bilaterally Extrem General: Yes normal to inspection, Yes no clubbing, cyanosis or edema and Yes no calf tenderness Psych Speech and movement: Normal speech and movement present Results Reviewed Results Reviewed: Compliance report for the last 30 nights shows that he has used 30/30 nights, 100%. Average use it per night 5 hours 20 minutes. There is no significant air leak. Residual AHI 0.5 Assessment & Plan Assessment & Plan (1) Obesity (BMI 30-39.9): Comment: PATIENT REMAINS MODERATELY OBESE. HE IS NOT IN ANY ACTIVE WEIGHT MANAGEMENT PROGRAM. Code(s): E66.9 - Obesity, unspecified Category: Medical Plan: Talked to him about the weight and urge to cut down the portions of his meals. Try to do some exercise on a regular basis. (2) ALONSO (obstructive sleep apnea): Comment: HE IS A CONFIRMED CASE OF MODERATELY SEVERE OBSTRUCTIVE SLEEP APNEA/SNORING. IT IS COMPLETELY ELIMINATED WITH THE HELP OF CPAP. HE IS VERY HAPPY WITH HIS CPAP DEVICE AND FULLFACE MASK. HE WAKES UP FULLY REFRESHED IN THE MORNING AND HAS NO DAYTIME SLEEPINESS. COMPLIANCE IS VERY GOOD. Code(s): G47.33 - Obstructive sleep apnea (adult) (pediatric) Category: Medical Plan: COMMENDED FOR GOOD COMPLIANCE AND ADVISED TO CONTINUE USING THE CPAP REGULARLY EVERY NIGHT TRY TO USE IT UP TO 6 HOURS PER NIGHT. Coding Level of Care Code Est Pt Level 3 (98847) Diagnoses Obesity (BMI 30-39.9) E66.9 ALONSO (obstructive sleep apnea) G47.33
--- OUTSIDE RECORDS SUMMARY | 2025-02-11 16:35 | XMS_ITS | Clinical Summary ---
Author Organization [employer] Address [address] [place] [address] [address] [place] [address] Care Team Providers Care Electric Blanket Wirer Name Role Phone Winnie Osman DO Primary Care Provider [phone] Allergies No known active allergies Medications polyethylene glycol, PEG, 3350 (Glycolax) 17 GM/SCOOP powder TAKE 17 GM MIXED IN 8 OUNCES OF WATER, COFFEE OR TEA ONCE DAILY NEEDED FOR CONSTIPATION 3 Active hydrocortisone (Proctosol HC) 2.5 % rectal cream apply by topical route 4 times every day to the affected area(s) as needed for HEMORRHOIDS 1 Active GaviLAX 17 GM/SCOOP powder Mix 17g (1 capful) in 8 ounces of water and take by mouth every day NEEDED FOR CONSTIPATION 510 g 2 4 Active docusate sodium (Colace) 100 MG capsuleIndicatio ns:Chronic constipation TAKE 1 CAPSULE BY MOUTH TWICE DAILY NEEDED 180 capsule 1 5 Active senna (Senokot) 8.6 MG tablet TAKE 2 TABLETS BY MOUTH EVERY DAY NEEDED FOR CONSTIPATION 180 tablet 1 5 Active losartan (Cozaar) 50 MG tabletIndication s:Essential hypertension TAKE 1 TABLET BY MOUTH EVERY DAY 90 tablet 2 5 Active hydroCHLOROthiaz shlomo (HYDRODiuril) 25 MG tabletIndication s:Essential hypertension TAKE 1 TABLET BY MOUTH EVERY DAY IN THE MORNING 90 tablet 2 5 Active cholecalciferol VITAMIN D (Vitamin D-3) 50 MCG (2000 UT) tabletIndication s:Vitamin D deficiency TAKE 1 TABLET BY MOUTH EVERY DAY 90 tablet 2 Active Active Problems Problem Noted Date Diagnosed Date Bifascicular block 08/02/2016 Tricuspid valve regurgitation 08/02/2016 Vitamin D deficiency 08/02/2016 Essential hypertension 08/17/2015 BMI 35.0-35.9,adult 08/17/2015 Encounters Date Type Department Care Team Description 12/08/2024 Refill [facility] MEDICINE [address] [place] [address] Winnie Osman DO Essential hypertension; Vitamin D deficiency from Last 3 Months Immunizations Immunization Administration Dates Next Due Hep A, Adult 01/28/2022,12/28/2010 Hep B, Adolescent or Pediatric 07/14/2011 Hep B, adult 01/04/2024,01/28/2022 Influenza injectable quadriv alent IIV4 with preservative 03/21/2016 Influenza injectable quadrivalent preservative f ree 04/09/2021 Influenza, Split (incl. purified surface antigen ) 04/12/2013 Tdap 01/04/2024,10/15/2013 Family History Medical History Relation Name Comments Heart disease Father Hypertension Father Breast cancer Father's Sister Heart disease Mother Hypertension Mother Relation Name Status Comments Father Father's Sister Mother Social History Tobacco Use Types Packs/Day Years Used Date Smoking Tobacco: Never Smokeless Tobacco: Never Tobacco Cessation:Counseling Given: Not Answered Alcohol Use Standard Drinks/Week Comments Never 0 (1 standard drink = 0.6 oz pur e alcohol) Depression Answer Date Recorded Patient Health Questionnaire-9 Score 0 01/04/2024 Patient Health Questionnaire-9 Score 0 01/04/2024 Last PHQ-9: Questionnaire Data Not on file 0 01/04/2024 Housing Stability Answer Date Recorded What is your housing situation today? I have danii sing 01/04/[address] you li ve. Do you have problems with any of the following? None of the above 01/04/2024 Food Insecurity Answer Date Recorded Within the past 12 months, y ou worried that your food would run out before you got money to buy more: Never True 01/04/2024 Within the past 12 months,th e food you bought just didn't last and you didn't have enough money to get more: Never True Transportation Answer Date Recorded In the past 12 months, has l ack of transportation kept you from medical appts, meetings, work or from getting things needed for daily living? No 01/04/2024 Utilities Answer Date Recorded In the past 12 months, has t he electric, gas, oil or water company threatened to shut off services in your home? No 01/04/2024 Depression Answer Date Recorded Patient Health Questionnaire-2 Score 0 01/04/2024 Internet Access Answer Date Recorded Internet Access Q1 Yes 01/08/2024 Internet Access Q2 Not on file 01/08/2024 Sex and Gender Information Value Date Recorded Sex Assigned at Male 03/07/2022 10:21 AM EDT Legal Sex Male 10:21 AM EDT Gender Identity Male 03/07/2022 10:21 AM EDT Sexual Orientation Straight 03/07/2022 10 :21 AM EDT Last Filed Vital Signs Vital Sign Reading Time Taken Comments Blood Pressure 132/80 08/16/2024 11:25 AM EDT Pulse 70 08/16/2024 11:25 AM EDT Temperature 36.8 C (98.3 F) 08/16/2024 11:25 AM EDT Respiratory Rate 21 08/16/2024 11:25 AM EDT Oxygen Saturation 98% 08/16/2024 11:25 AM EDT Inhaled Oxygen Concentration - - Weight 110 kg (242 lb) 08/16/2024 11:25 AM EDT Height 170.2 cm (5' 7 ) 08/16/2024 11:25 AM EDT Body Mass Index 37.9 08/16/2024 11:25 AM EDT Plan of Treatment Health Maintenance Due Date Last Done Comments CT Colonography 1974 Colonoscopy 1974 Colorectal Cancer Screening 1974 FIT DNA/Cologuard 1974 FIT 1974 FOBT 1974 Sigmoidoscopy 1974 Family Planning (PISQ) 1989 Pneumococcal Vaccine: 50+ Years (1 of 2 - PCV) 1993 Zoster Vaccines (1 of 2) 02/08/2024 Hepatitis B Vaccines (3 of 3 - 19+ 3-dose series) 02/29/2024 01/04/2024, 01/28/2022, 07/14/2011 Depression Screening 01/03/2025 01/04/2024, 01/04/2024 COVID-19 Vaccine (3 - 2024-2 6 season) 2025 09/01/2020, 08/04/2020 Influenza Vaccine (#1) 2025 , 03/21/2016, 04/12/2013 SDOH Screening 08/09/2025 08/09/2024 Alcohol/Substance Use Screening 08/16/2025 08/16/2024 Disability Screening 08/16/2025 08/16/2024 Tobacco Screening 08/16/2025 08/16/2024 Lipid Panel 02/27/2029 02/28/2024 DTaP/Tdap/Td Vaccines (3 - T d or Tdap) 01/03/2034 01/04/2024, 10/15/2013 RSV Patients and Patients Aged 60 years or older (1 - 1-dose 75+ series) 2049 Hepatitis A Vaccines Aged Out 01/28/2022, 12/28/2010 No longer eligible based on patient's age to complete this topic HIV Screening Completed 02/28/2024, 12/08/2020 Hepatitis C Screening Completed 02/28/2024 , 12/08/2020 HIB Vaccines Aged Out No longer eligi ble based on patient's age to complete this topic HPV Vaccines Aged Out No longer eligi ble based on patient's age to complete this topic IPV Vaccines Aged Out No longer eligi ble based on patient's age to complete this topic Meningococcal B Vaccine Aged Out No l onger eligible based on patient's age to complete this topic Meningococcal Vaccine Aged Out No delmy wicho eligible based on patient's age to complete this topic RSV under 20 months Aged Out No longe r eligible based on patient's age to complete this topic Rotavirus Vaccines Aged Out No longer eligible based on patient's age to complete this topic Procedures Procedure Name Priority Date/Time Associated Diagnosis Comments HEPATITIS C AB W/REFL TO HCV RNA, QN, PCR Routine 02/28/2024 10:05 AM EDT Colon cancer screening HIV 1/2 ANTIGEN/ANTIBODY, FOURTH GENERATION W/RFL Routine 02/28/2024 10:05 AM EDT Colon cancer screening LIPID PANEL, STANDARD Routine 02/28/2024 10:05 AM EDT Essential hypertension from Last 3 Months or Most Recently Relevant to Health Maintenance Results * Hepatitis C Antibody with Reflex to HCV, RNA, Quantitative, Real-Time PCR (02/28/2024 10:05 AM EDT) Hepatitis C Antibody Nonreactive Nonreactive [facility] Comment:Antibodies to HCV no t detected; does not exclude early acuteHCV infection. Blood Venous blood specimen / Unknown 02/28/2024 10:05 AM EDT 02/28/2024 11:12 AM EDT us Winnie Osman DO LAB BLOOD ORDERABLES Final R esult [facility] [address] [place] [phone] * HIV-1/2 Antigen and Antibodies, Fourth Generation, with Reflexes (02/28/2024 10:05 AM EDT) HIV AB/AG Nonreactive Nonreactive [facility] Comment:HIV-1 p24 Ag and/or HIV-1/HIV-2 Ab not detected.A test result that is nonreactive does not exclude thepossibility of exposure to or infection with HIV-1 and/orHIV-2. Nonreactive results in this assay for individualswith prior exposure to HIV-1 and/or HIV-2 may be due toantigen and antibody levels that are below the limit ofdetection of this assay.The [employer] HIV Ag/Ab Combo assay result andsupplemental assay results should be interpreted inconjunction with the patient's clinical presentation,history and other laboratory results. If the results areinconsistent with clinical evidence, additional testing issuggested to confirm the result. Blood Venous blood specimen / Unknown 02/28/2024 10:05 AM EDT 02/28/2024 11:12 AM EDT us Winnie Osman DO LAB BLOOD ORDERABLES Final R esult Performing Organization Address [facility] Co de Phone Number [facility] [address] [place] [address] [phone] * Lipid Panel, Standard (02/28/2024 10:05 AM EDT) Triglycerides 54 <150 mg/dL [facility] Comment:Desirable Triglyceri de: less than 150 mg/dLBorderline High Triglyceride 150-199 mg/dLHigh Triglyceride: 200-499 mg/dLVery High Triglyceride: greater than or equal to 5OO mg/dL Cholesterol 147 <200 mg/dL [facility] Comment:Desirable Cholestero l: less than 200 mg/dLBorderline High Cholesterol: 200-239 mg/dLHigh Cholesterol: greater than 239 mg/dL LDL Cholesterol Calculated 90 <100 mg/dL [facility] Comment:Desirable LDL: less than 100 mg/dLNear Optimal/Above Optimal LDL: 110- 129 mg/dLBorderline High LDL: 130-159 mg/dLHigh LDL: 160-189 mg/dLVery High LDL: greater than or equal to 190 mg/dL HDL Cholesterol 47 >40 mg/dL [facility] Comment:Desirable HDL: great er than 40 mg/dL Note: This HDL assay may give artificially low results in patients with liver disease. Blood Venous blood specimen / Unknown 02/28/2024 10:05 AM EDT 02/28/2024 11:12 AM EDT Winnie Osman DO LAB BLOOD ORDERABLES Final R esult Performing Organization Address [facility] Co de Phone Number [facility] [address] [place] [address] [phone] from Last 3 Months or Most Recently Relevant to Health Maintenance Insurance [facility] , [address] [place] [address] Care Teams Electric Blanket Wirer Relationship Specialty Start Date End Date Winnie Osman DO [address] [place] [phone] PCP - General Family Medicine 11/22/13
--- OUTSIDE RECORDS SUMMARY | 2025-02-11 16:35 | XMS_ITS | Encounter Summary ---
Author Organization [employer] Address [address] [facility] [address] [place] [address] Care Team Providers Care Hotel Maid Name Role Phone Winnie Osman DO Primary Care Provider [phone] Encounter Details Date Type Department Care Team (Late st Contact Info) Description 06/14/2022 Orders Only [facility] [address] [place] [address] Winnie Andrade LPN Social History Tobacco Use Types Packs/Day [...] on filedocumented in this encounter Care Teams Hotel Maid Relationship Specialty Start Date End Date Winnie Osman DO [address] [place] [phone] PCP - General Family Medicine 11/22/13 documented as of this encounter
--- OUTSIDE RECORDS SUMMARY | 2025-02-11 16:35 | XMS_ITS | Encounter Summary ---
Author Organization [email or web address] Address [address] [facility] [address] [place] [address] Care Team Providers Care Associate Director Data & Analytics Name Role Phone Winnie Osman DO Primary Care Provider [phone] Encounter Details Date Type Department Care Team (Late st Contact Info) Description 01/27/2023 Orders Only [facility] MED & PEDS [address] [place] [address] Winnie Andrade LPN Social History Tobacco Use [...] on filedocumented in this encounter Care Teams Associate Director Data & Analytics Relationship Specialty Start Date End Date Winnie Osman DO [address] [place] [phone] PCP - General Family Medicine 11/22/13 documented as of this encounter
--- OUTSIDE RECORDS SUMMARY | 2025-02-11 16:35 | XMS_ITS | Encounter Summary ---
Author Organization [employer] Address [address] [facility] [address] [place] [address] Care Team Providers Care Game Programer Name Role Phone Winnie Osman DO Primary Care Provider [phone] Encounter Details Date Type Department Care Team (Late st Contact Info) Description 05/18/2022 Orders Only [facility]IC[facility] [address] [place] [address] Clarissa Shelley LPN Social History Tobacco Use [...] on filedocumented in this encounter Care Teams Game Programer Relationship Specialty Start Date End Date Winnie Osman DO [address] [place] [address] PCP - General Family Medicine 11/22/13 documented as of this encounter
--- OUTSIDE RECORDS SUMMARY | 2025-02-11 16:35 | XMS_ITS | Encounter Summary ---
Author Organization [facility] Address [address] [place] [address] [address] [place] [address] Care Team Providers Care Sales Estimator Name Role Phone Winnie Osman DO Primary Care Provider [phone] Reason for Visit * Reason Onset Date Comments Appointment Request 09/11/2023 Encounter Details Date Type Department Care Team ([facility] st Contact Info) Description 09/11/2023 Telephone [facility] [address] [place] [address] Winnie Osman DO [address] [place] [address] Appointment Request Social History Tobacco Use Types Packs/Day Years Used Date Smoking Tobacco: Never Assessed Sex and Gender Information Value Date Recorded Sex Assigned at Male 03/07/2022 10:21 AM EDT Legal Sex Male 10:21 AM EDT Gender Identity Male 03/07/2022 10:21 AM EDT Sexual Orientation Straight 03/07/2022 10 :21 AM EDT documented as of this encounter Miscellaneous Notes * Telephone Encounter - José Miguel Mendes - 09/11/2023 4:36 PM EDT Tc from pt stating is not in state currently and would like physical to be r/s for the end of November or beginning of December. Please contact pt at [phone]. documented in this encounter Plan of Treatment Not on file documented as of this encounter Visit Diagnoses Not on filedocumented in this encounter Care Teams Sales Estimator Relationship Specialty Start Date End Date Winnie Osman DO [address] [place] [id number] PCP - General Family Medicine 11/22/13 documented as of this encounter
--- OUTSIDE RECORDS SUMMARY | 2025-02-11 16:35 | XMS_ITS | Encounter Summary ---
Author Organization [facility] Address [address] [facility] [address] [place] [address] Care Team Providers Care Lens Silverer Name Role Phone Winnie Omsan DO Primary Care Provider Encounter Details Date Type Department Care Team (Latest Contact Info) Description 05/23/2018 Abstract [facility] CONVERSIONS Dental, Provider, DDS Social History Tobacco Use Types Packs/Day Years [...] on filedocumented in this encounter Care Teams Lens Silverer Relationship Specialty Start Date End Date Winnie Osman DO [address] [place] [id number] PCP - General Family Medicine 11/22/13 documented as of this encounter
== END 2025-02-11 14:00 | disposition home or self-care (01) ==
LOC: HO.HPS 13:30
PROVIDERS: PCP Family Medicine; Visit Provider Internal Medicine
DX: E66.9 Obesity, unspecified (principal); G47.33 Obstructive sleep apnea (adult) (pediatric)
CPT/HCPCS: 99213